=== PATIENT | female | born 1950 | race Caucasian/White ===

== ENCOUNTER 2018-11-30 14:29 | Emergency (ER) | payer OTHER ==
[~2018-11-30] VITALS: Ht 165.1 cm; Wt 95.3 kg
[~2018-11-30 14:29] MED LIST: AMBIEN 10 MG TA10 MG PO; AMBIEN 5 MG TABL5 M1 PO; ATENOLOL 25 MG25 M1 PO; BAYER CHEWABLE81 MG PO; BENICAR20 MG PO; BENICAR40 MG PO; CALCIUM 600 +1 EAC1 PO; CHLORTHALIDONE25 MG PO; FISH OIL 1,001000 M2 PO; GINKGO BILOBA30 MG PO; GLUCOSAMINE HC500 MG PO; LASIX 20 MG TAB20 MG PO; LIPITOR40 MG PO; METFORMIN HCL500 MG PO; MILK THISTLE140 M1 PO; NEXIUM40 MG PO; PIOGLITAZONE15 MG PO; POTASSIUM CHLO20 ME2 PO; WELLBUTRIN SR150 MG PO
[2018-11-30 14:36] VITALS: BP 154/67
[2018-11-30] MEDS ORDERED: ATORVASTATIN CA40 MG PO (14:54)
[2018-11-30] MEDS ORDERED: SYNTHROID100 MC1 PO (14:54)
[2018-11-30] MEDS ORDERED: GLIMEPIRIDE1 MG PO (14:54)
[2018-11-30] MEDS ORDERED: OMEPRAZOLE40 MG PO (14:55)
[2018-11-30] MEDS ORDERED: PEPCID40 MG PO (14:57)
[2018-11-30] MEDS ORDERED: DIPHENHIST50 MG PO (14:57)
[2018-11-30] MEDS ORDERED: KEFLEX500 M1 PO (14:57)
[2018-11-30] MEDS ORDERED: NORCO 5-325 TA1 EACH PO (14:58)
== END 2018-11-30 15:21 | disposition home or self-care (01) ==
LOC: ER 14:29
DX: S60.464A Insect bite (nonvenomous) of right ring finger, initial encounter (principal); K21.9 Gastro-esophageal reflux disease without esophagitis; Z95.1 Presence of aortocoronary bypass graft; Z90.49 Acquired absence of other specified parts of digestive tract; Z87.891 Personal history of nicotine dependence; Z88.5 Allergy status to narcotic agent; Z88.8 Allergy status to other drugs, medicaments and biological substances; W57.XXXA Bitten or stung by nonvenomous insect and other nonvenomous arthropods, initial encounter; Y93.89 Activity, other specified; Y92.89 Other specified places as the place of occurrence of the external cause; Y99.8 Other external cause status

== ENCOUNTER → 2019-09-10 | Outpatient (CLI) | payer OTHER ==
[~2019-09-10] VITALS: Ht 165.1 cm; Wt 99.8 kg
[~2019-09-10] MED LIST changes: +ACIPHEX 20 MG T20 MG PO; +ACTOS 30 MG TAB30 M1 PO; +ADVAIR 250-501 EACH INH; +CALCIUM MAGNES1 EACH PO; +COZAAR100 MG PO; +DIPHENHIST50 MG PO; +GLIMEPIRIDE1 MG PO; +KEFLEX500 M1 PO; +KLOR-CON 10 ER10 MEQ PO; +MILK THISTLE175 M3 PO; +NEURONTIN 300M300 M2 PO; +NORCO 5-325 TA1 EACH PO; +NORVASC 2.5 MG2.5 M1 PO; +OMEPRAZOLE40 MG PO; +PEPCID40 MG PO; +STIOLTO RESPIMAT4 GM INH; +SYNTHROID100 MC1 PO; +VENTOLIN HFA INH8 GM INH
--- NOTE | ~2019-09-10 | P ---
[facility] [place] [address] PROCEDURE REPORT Name: HIROLO MORFIN Room #: REG [facility].#: [id number] Admission: 09/10/19 Attend Phys: Niko Argueta MD Discharge: Date of : 50 Report #: [id number] THIS REPORT FOR: //name// CC: Niko Raygoza MD OUTPATIENT COLONOSCOPY REPORT BRIEF HISTORY: The patient is a 69-year-old woman with history of multiple colon adenomas removed in the past. She also had a segmental colon resection for a benign mass lesion. She presents for high risk screening colonoscopy due to history of colon polyps. PREOPERATIVE DIAGNOSIS: High risk screening colonoscopy. POSTOPERATIVE DIAGNOSES: 1. Multiple colon polyps. 2. Rectal polyp. 3. Surgical changes consistent with right hemicolectomy. MEDICATIONS: Deep sedation with propofol per anesthesia. SPECIMENS: 1. Polyps x 2, hepatic flexure. 2. Polyp at 70 cm. 3. Rectal polyp. ESTIMATED BLOOD LOSS: 3 mL. PROCEDURES: Colonoscopy to cecum and terminal ileum with snare polypectomy and biopsy. FINDINGS: Prior to propofol sedation, procedure of colonoscopy discussed with the patient as well as potential risks and its complications. She indicates she understands and desires to proceed. DESCRIPTION OF PROCEDURE: With the patient in left lateral decubitus position, digital examination was completed, which revealed no abnormalities. Subsequently, the Olympus video colonoscope was introduced in the rectum, advanced under direct vision to the proximal colon. This was done with minimal difficulty. The patient has had a previous right hemicolectomy. She has a [id number] surgical anastomosis. Just beyond the anastomosis was about a 10-12 cm segment of blind end colon. The mucosa in this blind end was unremarkable. However, 2 polyps were seen. One was a diminutive polyp, removed with biopsy forceps. The other was a flat polyp in the range of about 6-7 mm, removed by cold snare polypectomy. The anastomosis itself was unremarkable. I [facility] [address] [place] [address] PROCEDURE REPORT Name: ROLO DO Room #: REG [facility] De [facility]za#: [id number] Admission: 09/10/19 Attend Phys: Niko Argueta MD Discharge: Date of : 50 Report #: [id number] was able to advance the tip of the scope into the distal ileum, which was unremarkable. The blind end of the ileum was also unremarkable. At that point, the scope was slowly withdrawn and careful circumferential views were obtained. The prep was good. The mucosa was within normal limits, normal vascular pattern, normal light reflex. As we withdrew the scope, no additional abnormalities were noted until about 70 cm, at which point a diminutive polyp was seen and removed with biopsy forceps. Scope was further withdrawal. No additional abnormalities were noted until the rectum was reached and another diminutive polyp was seen and removed with biopsy forceps. Upon retroflexion, no abnormalities were seen. Scope was withdrawn. The patient tolerated the procedure well. CONDITION OF THE PATIENT UPON DISCHARGE: Following procedure, the patient drowsy. She will be discharged home when fully ambulatory. INSTRUCTIONS TO THE PATIENT AND FAMILY AT FAMILY AT THE TIME OF DISCHARGE: The patient with finding of 4 polyps as noted above. We will follow up on the pathology. If 3 or more adenomas, she should return in 3 years, otherwise she is to return in 5 years for high risk screening colonoscopy. Last colonoscopy was about 4-1/2 years ago. By: 0900 1023 Niko Argueta MD /nt
--- NOTE | ~2019-09-10 | P ---
[facility] [place] [address] PROCEDURE REPORT Name: HIROLO SHELBIE Room #: REG [facility] Ap#: [id number] Admission: 09/10/19 Attend Phys: Niko Argueta MD Discharge: Date of : 50 Report #: [id number] THIS REPORT FOR: //name// CC: Niko Raygoza DATE OF SERVICE: 09/10/2019 OUTPATIENT UPPER ENDOSCOPY REPORT BRIEF HISTORY: The patient is a 69-year-old woman with history of hepatitis C as well as polycystic kidney, liver disease with evidence of cirrhosis for surveillance for esophageal varices. PREOPERATIVE DIAGNOSIS: Cirrhosis of the liver. POSTOPERATIVE DIAGNOSIS: Mild diffuse erythematous gastritis. MEDICATIONS: Deep sedation with propofol per anesthesia. SPECIMEN: None. ESTIMATED BLOOD LOSS: None. PROCEDURE: EGD. FINDINGS: Prior to propofol sedation, procedure of upper endoscopy discussed with the patient as well as potential risks and complications. We also discussed consideration of banding of varices if significant varices were found. DESCRIPTION OF PROCEDURE: With the patient in left lateral decubitus position, the Olympus video endoscope was inserted in cervical esophagus under direct vision without difficulty. Examination of this organ through its entire length revealed normal esophageal mucosa. The esophagus was examined through its entire length. The mucosa was intact. There was no evidence of esophageal varices. There was no evidence of esophagitis or Matta mucosa. Squamocolumnar junction was inspected and noted to be unremarkable. Scope was advanced in the stomach, was examined on end view as well as retroflexed views. There was a pattern of a diffuse gastritis with a striped severe erythema in the antrum of the stomach, but no ulcers or erosions were seen. Upon retroflexion, no mass lesions were seen. In addition, there was no endoscopic evidence of gastric varices on today's examination. The pylorus was unremarkable. Duodenal bulb was inspected and noted to be unremarkable. At that point, the scope was slowly withdrawn and careful circumferential views were obtained. Gastric varices were not seen. Scope was withdrawn. The patient tolerated the procedure well. [facility] [address] [place] [address] PROCEDURE REPORT Name: ROLO DO Room #: REG JESI De Souza#: [id number] Admission: 09/10/19 Attend Phys: Niok Argueta MD Discharge: Date of : 50 Report #: [id number] CONDITION OF THE PATIENT UPON DISCHARGE: Following procedure, the patient drowsy, aroused, conversant and will be discharged home when fully ambulatory. INSTRUCTIONS TO THE PATIENT AND FAMILY AT THE TIME OF DISCHARGE: No evidence of esophageal or gastric varices today, especially in view of her history of cirrhosis. Would give consideration to a surveillance in the future withdrawn on a periodic basis. I think she could wait at least 2 years before another endoscopy. We will proceed with colonoscopy at this time. By: 0829 0838 Niko Argueta MD /nt
--- NOTE | 2019-09-11 14:07 | PATH ---
[facility] [place] [address] PATHOLOGY RPT PROCEDURE Name: LENORE DO Room #: REG [facility] MAmnaR.#: [id number] Admission: 09/10/19 Date of : 50 Discharge: Report #: [id number] Path Case #: [id number] [facility] Accession Number: [id number] . 01 Material submitted: . PART A: hepatic flexure - POLYP AT HEPATIC FLEXURE X2 PART B: colon - POLYP AT 70CM PART C: rectum - POLYP AT RECTUM . 01 Clinical history: . Pre-OP DX: Hx of colon polyps Post-OP DX: Colon and rectal polyps . 02 Diagnosis: A. Colonic mucosa "polyp at hepatic flexure x2": - Fragments of tubular adenomas. - There is no evidence of high-grade dysplasia or malignancy. . B. Colonic mucosa "polyp at 70 cm": - Polypoid colonic mucosa consistent with early hyperplastic polyp. - There is no evidence of adenomatous change, high-grade dysplasia or malignancy. . C. Colonic mucosa "polyp at rectum": - Consistent with hyperplastic polyp. - There is no evidence of adenomatous change, high-grade dysplasia or malignancy. . (SHA:dilma; 09/11/2019) QMS 09/11/2019 0912 [facility] . 02 Electronically signed: . Major Brasher MD, Pathologist NPI- [id number] . 01 Gross description: . A. Received in formalin labeled "Heidi Doine, polyp at hepatic flexure," and additionally labeled on the requisition as "x2," are 4 segments of chandler soft tissue measuring 1.1 x 1.0 x 0.5 cm in aggregate dimensions and ranging from 0.4 to 0.9 cm in maximum dimension. The specimen is submitted entirely in cassette A1. . B. Received in formalin labeled "Lenore Do, polyp at 70 cm," is a single segment of chandler soft tissue measuring 0.4 cm in maximum dimension. The specimen is entirely submitted in cassette B1. . C. Received in formalin labeled "Heidi Doine, polyp at rectum," [place] [address] PATHOLOGY RPT PROCEDURE Name: LENORE DO Room #: REG [facility]#: [id number] Admission: 09/10/19 Date of : 50 Discharge: Report #: [id number] Path Case #: [id number] 3 segments of chandler soft tissue measuring 0.5 x 0.5 x 0.1 cm in aggregate dimensions and ranging from 0.3 to 0.4 cm in maximum dimension. The specimen is submitted entirely in cassette C1. (TSD; 09/10/2019) TOB/TOB 09/10/2019 2258 Local . 02 Pathologist provided ICD-10: D12.3, Z86.010 . 02 CPT . 681099, 863695, [id number] Specimen Comment: A courtesy copy of this report has been sent to [phone], [phone] Specimen Comment: [id number] Specimen Comment: Report sent to / DR SALTER Specimen Comment: A duplicate report has been generated due to demographic updates. Performed at: [facility] [address] [id number] MD Nas Mccord MD Phone: [phone] Performed at: 02 [place] [id number] [id number] MD Kevin Waddell MD Phone: [phone]
== END | disposition home or self-care (01) ==
LOC: GI 08-20 11:17
DX: Z12.11 Encounter for screening for malignant neoplasm of colon (principal); Z86.010 Personal history of colon polyps; D12.3 Benign neoplasm of transverse colon; K62.1 Rectal polyp; K74.60 Unspecified cirrhosis of liver; K29.60 Other gastritis without bleeding; K21.9 Gastro-esophageal reflux disease without esophagitis; I10 Essential (primary) hypertension; E11.9 Type 2 diabetes mellitus without complications; J43.9 Emphysema, unspecified; E03.9 Hypothyroidism, unspecified; E78.00 Pure hypercholesterolemia, unspecified; Z98.890 Other specified postprocedural states; Z79.899 Other long term (current) drug therapy; Z95.1 Presence of aortocoronary bypass graft; Z98.0 Intestinal bypass and anastomosis status; Z85.828 Personal history of other malignant neoplasm of skin; Z85.118 Personal history of other malignant neoplasm of bronchus and lung; Z87.891 Personal history of nicotine dependence; Z90.49 Acquired absence of other specified parts of digestive tract; Z98.41 Cataract extraction status, right eye; Z86.19 Personal history of other infectious and parasitic diseases; Z98.42 Cataract extraction status, left eye; Z87.448 Personal history of other diseases of urinary system
CPT/HCPCS: 62110; 62900